=== PATIENT | female | born 1960 | race Caucasian/White ===

== ENCOUNTER 2021-07-05 15:39 | Emergency (ER) | payer OTHER ==
[~2021-07-05] VITALS: Ht 172.7 cm; Wt 71.2 kg
[2021-07-05] MEDS ORDERED: LEVOTHYROXINE175 MC1 PO (15:49)
[2021-07-05] MEDS ORDERED: DOXYCYCLINE 10100 MG PO (17:53)
[2021-07-05] MEDS ORDERED: VENTOLIN HFA 1818 GM INH (17:53)
[2021-07-05] MEDS ORDERED: PERCOCET PO (17:53)
[2021-07-05] MEDS ORDERED: CITRATE OF MAG296 M1 PO (18:05)
[2021-07-05 18:17] VITALS: BP 131/70
--- NOTE | 2021-07-06 08:59 | EKG ---
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
== END 2021-07-05 18:18 | disposition home or self-care (01) ==
LOC: M.ERS 15:39
DX: S22.42XA Multiple fractures of ribs, left side, initial encounter for closed fracture (principal); J93.9 Pneumothorax, unspecified; E03.9 Hypothyroidism, unspecified; Z79.899 Other long term (current) drug therapy; W10.8XXA Fall (on) (from) other stairs and steps, initial encounter; Y93.89 Activity, other specified; Y92.89 Other specified places as the place of occurrence of the external cause; Y99.9 Unspecified external cause status